=== PATIENT | female | born 1965 | race Caucasian/White ===

== ENCOUNTER 2017-05-19 20:15 | Emergency (ER) | payer MEDICARE ==
--- NOTE | ~2017-05-19 | CT4 ---
[facility] A Service of [facility] RADIOLOGY TEXT RESULTS PATIENT: MIMI RIZZO LOCATION: [facility] : 61 UNIT #: [id number] AGE: [address]: Lawrence Villanueva MD SEX: F ORDER DR: [id number] [facility] [address] [place], [place] [address] [id number] E MR#: [id number] Acc #: [id number] NAME: MIMI RIZZO : 1965 SEX: F STUDY DATE/TIME: 05/19/2017 22:39 UNIT: [facility] ROOM: STUDY DESCRIPTION: CT Abd and Pelv Wo Cont Attending Physician: Lawrence Villanueva M.D. Ordering Physician: Lawrence Villanueva M.D. Primary Care Physician: Ora Velazco M.D. MEDICAL IMAGING REPORT This report is preliminary unless electronic signature is present EXAM CT scan of the abdomen and pelvis without contrast, 05/19/2017 HISTORY Left side abdominal pain and hip pain, status post fall today. TECHNIQUE Spiral CT was performed through the abdomen and pelvis without oral or intravenous contrast administration as per clinician request. This CT exam was performed with one or more of the following radiation dose reduction techniques: automatic exposure control, adjustment of mA and/or kV according to patient size, and iterative reconstruction. FINDINGS ABDOMEN: The exam is limited by the lack of oral and intravenous contrast. The liver, spleen, pancreas and adrenal glands are normal. Patient is status post cholecystectomy, gastric bypass and splenic artery embolization. Kidneys appears somewhat atrophic bilaterally. PELVIS FINDINGS: The gut, mesenteric and ralph structures are normal. There is no free fluid in the abdomen or pelvis. The lung bases are normal. IMPRESSION 1. Examination is limited by the lack of oral and intravenous contrast. 2. Surgical absence of the gallbladder. Postoperative changes of prior gastric bypass surgery. Postoperative changes of prior splenic artery embolization. 3. Kidneys appears somewhat atrophic bilaterally. 4. Postsurgical changes involving the midline of the anterior abdominal wall probably reflecting prior hernia repair. [facility] A Service of [facility] RADIOLOGY TEXT RESULTS PATIENT: MIMI RIZZO LOCATION: [facility] : 61 UNIT #: [id number] AGE: [address]: Lawrence Villanueva MD SEX: F ORDER DR: Dictated by... Kevin Wyatt M.D. THIS IS AN ELECTRONICALLY VERIFIED REPORT Kevin Wyatt M.D. at 05/20/2017 2:27 PM PK/keke TD: 05/19/2017 23:29 JOB #: [id number] MEDICAL IMAGING REPORT Page 1 of 1 COPY
--- NOTE | ~2017-05-19 | CR126 ---
[facility] A Service of [facility] RADIOLOGY TEXT RESULTS PATIENT: MIMI RIZZO LOCATION: [facility] : 61 UNIT #: [id number] AGE: [address]: Lawrence Villanueva MD SEX: F ORDER DR: [id number] [facility] [address] [place], [place] [address] [id number] E MR#: [id number] Acc #: [id number] NAME: MIMI RIZZO : 1965 SEX: F STUDY DATE/TIME: 05/19/2017 21:55 UNIT: [facility] ROOM: STUDY DESCRIPTION: CR Foot Complete Min 3 View Lt Attending Physician: Lawrence Villanueva M.D. Ordering Physician: Lawrence Villanueva M.D. Primary Care Physician: Ora Velazco M.D. MEDICAL IMAGING REPORT This report is preliminary unless electronic signature is present EXAM Left foot series, 05/19/2017 HISTORY Trauma. Left wrist, left forearm, left foot, left hip bruising on dorsal aspect of foot. Bruising and pain in foot, forearm and hip today. Fall. FINDINGS AP, lateral and oblique radiographs of the left foot show diminished overall bony mineralization. No traumatic fracture or malalignment. Mild degenerative changes diffusely in the interphalangeal joints. Moderate degenerative change first metatarsophalangeal joint. Small planar calcaneal spur. No soft tissue defect, subcutaneous air or radiodense foreign body. Dictated by... Mal Claire M.D. THIS IS AN ELECTRONICALLY VERIFIED REPORT Mal Claire M.D. at 05/20/2017 10:16 AM CHRISTIAN/keke TD: 05/19/2017 23:09 JOB #: [id number] MEDICAL IMAGING REPORT Page 1 of 1 COPY
--- NOTE | ~2017-05-19 | CR281 ---
[facility] A Service of [facility] RADIOLOGY TEXT RESULTS PATIENT: MIMI RIZZO LOCATION: [facility] : 61 UNIT #: [id number] AGE: [address]: Lawrence Villanueva MD SEX: F ORDER DR: [id number] [facility] [address] [place], [place] [address] [id number] E MR#: [id number] Acc #: [id number] NAME: MIMI RIZZO : 1965 SEX: F STUDY DATE/TIME: 05/19/2017 22:06 UNIT: [facility] ROOM: STUDY DESCRIPTION: CR Wrist Min 3 View Lt Attending Physician: Lawrence Villanueva M.D. Ordering Physician: Lawrence Villanueva M.D. Primary Care Physician: Ora Velazco M.D. MEDICAL IMAGING REPORT This report is preliminary unless electronic signature is present EXAM Left wrist INDICATIONS Left wrist pain and bruising after falling today. COMPARISON None. TECHNIQUE Three views of the left wrist were obtained. There is degenerative change at the first carpometacarpal joint. There is no fracture or dislocation identified. IMPRESSION First CMC joint degenerative change, otherwise normal. Dictated by... Joseph Chase M.D. THIS IS AN ELECTRONICALLY VERIFIED REPORT Joseph Chase M.D. at 05/20/2017 5:54 AM FEL/pcl TD: 05/19/2017 23:01 JOB #: [id number] MEDICAL IMAGING REPORT Page 1 of 1 COPY
--- NOTE | ~2017-05-19 | CR132 ---
[facility] A Service of [facility] RADIOLOGY TEXT RESULTS PATIENT: MIMI RIZZO LOCATION: [facility] : 61 UNIT #: [id number] AGE: [address]: Lawrence Villanueva MD SEX: F ORDER DR: [id number] [facility] [address] [place], [place] [address] [id number] E MR#: [id number] Acc #: [id number] NAME: MIMI RIZZO : 1965 SEX: F STUDY DATE/TIME: 05/19/2017 22:04 UNIT: [facility] ROOM: STUDY DESCRIPTION: CR Forearm 2 View Lt Attending Physician: Lawrence Villanueva M.D. Ordering Physician: Lawrence Villanueva M.D. Primary Care Physician: Ora Velazco M.D. MEDICAL IMAGING REPORT This report is preliminary unless electronic signature is present EXAM Left forearm series 05/19/2017 HISTORY Trauma. Fall today. Bruising on dorsal aspect of foot. Bruising and pain in foot, forearm and hip. FINDINGS AP and lateral radiographs of the left forearm are presented. No traumatic fracture or malalignment. The wrist and elbow joints appear intact. There is no soft tissue defect, subcutaneous air or radiodense foreign body. Dictated by... Mal Claire M.D. THIS IS AN ELECTRONICALLY VERIFIED REPORT Mal Claire M.D. at 05/20/2017 10:16 AM CHRISTIAN/anne TD: 05/19/2017 23:25 JOB #: [id number] MEDICAL IMAGING REPORT Page 1 of 1 COPY
--- NOTE | ~2017-05-19 | CR150 ---
[facility] A Service of [facility] RADIOLOGY TEXT RESULTS PATIENT: MIMI RIZZO LOCATION: [facility] : 61 UNIT #: [id number] AGE: [address]: Lawrence Villanueva MD SEX: F ORDER DR: [id number] [facility] [address] [place], [place] [address] [id number] E MR#: [id number] Acc #: [id number] NAME: MIMI RIZZO : 1965 SEX: F STUDY DATE/TIME: 05/19/2017 21:59 UNIT: [facility] ROOM: STUDY DESCRIPTION: CR Hip Min 2 Views Lt Attending Physician: Lawrence iVllanueva M.D. Ordering Physician: Lawrence Villanueva M.D. Primary Care Physician: Ora Velazco M.D. MEDICAL IMAGING REPORT This report is preliminary unless electronic signature is present EXAM Left hip series, 05/19/2017 HISTORY Trauma. Fall today. Left hip bruising on dorsal aspect of the foot, bruising and pain in foot, forearm and hip. FINDINGS AP radiograph of pelvis presented with frog-leg view of the left hip. Degenerative changes in the partially visualized lower lumbar spine. Bony ring of pelvis is intact. Mild degenerative changes in the bilateral hip joints. Proximal bilateral femurs intact with no evidence of fracture. Chronic calcifications adjacent to the left greater trochanter and right iliac wing. Surgical clips in the soft tissues bilaterally. Visualized bowel gas pattern normal. IMPRESSION No acute abnormality. Degenerative changes in the spine and hips as described above. Postoperative changes as above. Dictated by... Mal Claire M.D. THIS IS AN ELECTRONICALLY VERIFIED REPORT Mal Claire M.D. at 05/20/2017 10:16 AM CHRISTIAN/keke TD: 05/19/2017 23:12 JOB #: [id number] MEDICAL IMAGING REPORT [facility] A Service [facility] RADIOLOGY TEXT RESULTS PATIENT: MIMI RIZZO LOCATION: [facility] : 61 UNIT #: [id number] AGE: [address]: Lawrence Villanueva MD SEX: F ORDER DR: Page 1 of 1 COPY
[~2017-05-19 20:15] MED LIST: ACETAMINOPHEN PO; ALLEGRA; ALLOPURINOL300 MG PO; ASPIRIN PO; AZMACORT20 GM INH; BUPROPION HCL150 M1 PO; CALCIUM CITRAT500 GM; CALCIUM CITRAT500 GM PO; CARDURA PO; CELEBREX PO; COLCHICINE PO; CYANOCOBAL1000 MCG/1 IJ; DAKIN'S MODIF1000 ML TOP; DETROL; DETROL LA PO; DETROL PO; ESZOPICLONE2 MG PO; FAMOTIDINE PO; FLONASE16 GM; HYDROCODONE/APA1 T16 PO; K-DUR20 ME2 PO; KCL PO; LASIX PO; LISINOPRIL; LISINOPRIL PO; LISINOPRIL10 MG PO; LOVENOX SUBQ; LYRICA; MEDROL4 MG/DOSE- PO; METOPROLOL TAR25 MG PO; MULTIVITAMIN1 UDCAP; NABUMETONE PO; NILSTAT PO; NORCO 5/325 TAB1 TAB PO; NORVASC PO; NORVASC10 MG; NORVASC10 MG PO; PARAFON FORTE500 MG; PERCOCET5/325 PO; PERIACTIN4 M1 DOB; PHENERGAN PO; PREDNISONE PO; PROTONIX; PROTONIX PO; PROZAC PO; REQUIP2 MG PO; SAVELLA100 MG PO; SAVELLA50 MG; STOOL SOFTENER240 MG; SYNTHROID0.05 MG PO; TRAZODONE; TYLOX1 CAP 5/50 PO; VALTREX500 MG PO; VANCOMYCIN IV; VITAMIN D-32000 UNI1 PO; VITAMIN D5000 UNIT; ZANAFLEX4 M1 PO; ZOLOFT100 MG PO; ZYLOPRIM; ZYLOPRIM PO; ZYRTEC PO; ZYVOX600 MG PO; [UNRECOGNIZED DRUG - OTHER] IV; [UNRECOGNIZED DRUG - OTHER] TOP
== END 2017-05-19 23:36 | disposition home or self-care (01) ==
LOC: CED 20:15
DX: S40.022A Contusion of left upper arm, initial encounter (principal); S90.32XA Contusion of left foot, initial encounter; S30.0XXA Contusion of lower back and pelvis, initial encounter; S70.02XA Contusion of left hip, initial encounter; Z88.5 Allergy status to narcotic agent; Z79.899 Other long term (current) drug therapy; W19.XXXA Unspecified fall, initial encounter; Y92.009 Unspecified place in unspecified non-institutional (private) residence as the place of occurrence of the external cause
CPT/HCPCS: 73090; 73110; 73502; 73630; 74176; 99284